=== PATIENT | female | born 1950 | race Caucasian/White ===

== ENCOUNTER 2016-09-01 12:11 | Emergency (ER) | payer BC ==
[2016-09-01] MEDS ORDERED: OPTIRAY 350 100 ML VIAL HMH IV ONE (12:12)
[2016-09-01] MEDS ORDERED: ONDANSETRON 4 MG VIAL ONE (16:18)
[2016-09-01] MEDS ORDERED: MORPHINE 4 MG/ML SYR ONE (16:19)
[2016-09-01] MEDS ORDERED: TDaP 0.5 ML VIAL IM.VACC ONE (16:20)
== END 2016-09-01 19:34 | disposition home or self-care (01) ==
LOC: ER 12:11
CPT/HCPCS: 36415; 70450; 71260; 72125; 74177; 80053; 81001; 83690; 85025; 85610; 85730; 90471; 93005; 96374; 96375